=== PATIENT | female | born 1945 | race Caucasian/White ===

== ENCOUNTER 2016-09-14 07:59 | Emergency (ER) | payer OTHER ==
[~2016-09-14] VITALS: Ht 160 cm; Wt 65.8 kg
[2016-09-14] MEDS ORDERED: BACITRACIN TOP OINT 1 UD PKG TOP ONE (09:00)
[2016-09-14] MEDS ORDERED: LIDOCAINE 1% HCL (LOCAL ANESTH.) INJ 20ML MDV IJ ONE (09:00)
[2016-09-14] MEDS ORDERED: cefTRIAXone SOD 1,000 MG VL IM ONE (09:00)
[2016-09-14] MEDS ORDERED: ONDANSETRON HCL 4 MG/2 ML VIAL IM ONE (09:00)
[2016-09-14] MEDS ORDERED: TETANUS-DIPTH-ACEL PERTUSSIS 0.5ML SYRG IM ONE (09:00)
[2016-09-14] MEDS ORDERED: HYDROmorphone HCL 2 MG/ML VL IM ONE (09:00)
[2016-09-14 09:05] VITALS: BP 161/82
[2016-09-14] MEDS ORDERED: KETOROLAC TROMETH 60MG/2ML VIAL IM ONE (09:15)
== END 2016-09-14 11:20 | disposition home or self-care (01) ==
LOC: ER 07:59
DX: S81.812A Laceration without foreign body, left lower leg, initial encounter (principal); I10 Essential (primary) hypertension; Z23 Encounter for immunization; W54.0XXA Bitten by dog, initial encounter; Y93.89 Activity, other specified; Y99.8 Other external cause status; Y92.89 Other specified places as the place of occurrence of the external cause
CPT/HCPCS: 12005; 12044; 90471; 90715; 96372; 99285; J0696; J1885; J2001

== ENCOUNTER 2016-09-16 15:41 | Emergency (ER) | payer OTHER ==
[~2016-09-16] VITALS: Ht 160 cm; Wt 65.8 kg
[2016-09-16 17:00] VITALS: BP 136/66
== END 2016-09-16 17:54 | disposition home or self-care (01) ==
LOC: ER 15:48
DX: S81.851D Open bite, right lower leg, subsequent encounter (principal); Z48.01 Encounter for change or removal of surgical wound dressing; I10 Essential (primary) hypertension

== ENCOUNTER 2016-09-28 08:11 | Emergency (ER) | payer OTHER ==
[~2016-09-28] VITALS: Ht 160 cm; Wt 65.8 kg
[2016-09-28 08:20] VITALS: BP 141/90
== END 2016-09-28 09:28 | disposition home or self-care (01) ==
LOC: ER 08:11
DX: S81.812D Laceration without foreign body, left lower leg, subsequent encounter (principal); I10 Essential (primary) hypertension; Z48.02 Encounter for removal of sutures